=== PATIENT | male | born 1975 | race Caucasian/White ===

== ENCOUNTER 2021-09-30 14:26 | Outpatient (CLI) | payer OTHER, SELFPAY ==
[2021-09-30 17:26] LABS: Chloride* 100 mmol/L (96-114); Potassium* 3.9 mmol/L (3.6-5.1); Sodium* 136 mmol/L (135-149)
[2021-09-30 17:27] LABS: Blood Urea Nitrogen* 13 mg/dL (5-24); Calcium* 9.5 mg/dL (8.4-10.6); Carbon Dioxide* 25 mmol/L (20-32); Creatinine* 0.8 mg/dL (0.5-1.5); Estimated Glomerular Filt Rate 111.92; Glucose* 92 mg/dL (60-115)
== END 2021-09-30 14:27 | disposition home or self-care (01) ==
LOC: NFLDREF 14:27
PROVIDERS: PCP Family Medicine; Visit Provider Family Medicine
DX: I10 Essential (primary) hypertension (principal)
CPT/HCPCS: 80048

== ENCOUNTER 2022-11-10 08:30 | Outpatient (CLI) | payer OTHER, SELFPAY | END 2022-11-10 08:31 | disposition home or self-care (01) | LOC: NFLDREF 11-13 20:22 | PROVIDERS: PCP Family Medicine; Referring Provider Family Medicine; Visit Provider Family Medicine | DX: Z00.00 Encounter for general adult medical examination without abnormal findings (principal); E78.5 Hyperlipidemia, unspecified; I10 Essential (primary) hypertension | CPT/HCPCS: 80053; 80061 ==

== ENCOUNTER 2024-06-14 15:03 | Outpatient (CLI) | payer BC, SELFPAY | END 2024-06-14 15:04 | disposition home or self-care (01) | PROVIDERS: PCP Family Medicine; Referring Provider Family Medicine; Visit Provider Family Medicine | DX: E78.5 Hyperlipidemia, unspecified (principal) | CPT/HCPCS: 80053; 80061 ==

== ENCOUNTER 2024-07-13 08:50 | Outpatient (CLI) | payer BC, SELFPAY ==
--- NOTE | 2024-07-13 10:17 | P.ANES_ITS ---
Anesthesia Charges Start Date/Time Anesthesia Start Date: 07/13/24 Anesthesia Start Time: 09:33 Stop Date/Time Anesthesia Stop Date: 07/13/24 Anesthesia Stop Time: 10:15 Coding CPT Codes CPT Codes: ANES UPR LWR GI NDSC PX - 34772 ([id number]) P2 - PATIENT W/MILD SYST DISEASE, QK - LINUX NETWORK ENGINEER 2-4 CNCRNT ANES PROC, QX - GLACING MACHINE TENDER SVC W/ MD MED DIRECTION
--- NOTE | 2024-07-13 10:17 | W.ANESCHARGE ---
Anesthesia Charges Start Date/Time Anesthesia Start Date: 07/13/24 Anesthesia Start Time: 09:33 Stop Date/Time Anesthesia Stop Date: 07/13/24 Anesthesia Stop Time: 10:15 Coding CPT Codes CPT Codes: ANES UPR LWR GI NDSC PX - 16221 ([id number]) P2 - PATIENT W/MILD SYST DISEASE, QK - WORLD LANGUAGE TEACHER 2-4 CNCRNT ANES PROC, QX - NURSING HOME AIDE SVC W/ MD MED DIRECTION
--- NOTE | 2024-07-13 12:08 | P.ANES_ITS ---
Anesthesia Charges Start Date/Time Anesthesia Start Date: 07/13/24 Anesthesia Start Time: 09:33 Stop Date/Time Anesthesia Stop Date: 07/13/24 Anesthesia Stop Time: 10:15 Coding CPT Codes CPT Codes: ANES UPR LWR GI NDSC PX - 61113 ([id number]) QK - LADIES ATTENDANT 2-4 CNCRNT ANES PROC, QX - SCAFFOLD ERECTOR SVC W/ MD MED DIRECTION, P2 - PATIENT W/MILD SYST DISEASE
--- NOTE | 2024-07-13 12:08 | W.ANESCHARGE ---
Anesthesia Charges Start Date/Time Anesthesia Start Date: 07/13/24 Anesthesia Start Time: 09:33 Stop Date/Time Anesthesia Stop Date: 07/13/24 Anesthesia Stop Time: 10:15 Coding CPT Codes CPT Codes: ANES UPR LWR GI NDSC PX - 72510 ([id number]) QK - BUFFING AND SUEDING MACHINE OPERATOR 2-4 CNCRNT ANES PROC, QX - NURSE SANE SVC W/ MD MED DIRECTION, P2 - PATIENT W/MILD SYST DISEASE
== END 2024-07-13 08:51 | disposition home or self-care (01) ==
LOC: OP CLINIC 08:51
PROVIDERS: PCP Family Medicine; Visit Provider Surgery
DX: Z12.11 Encounter for screening for malignant neoplasm of colon (principal); Z83.719 Family history of colon polyps, unspecified; R10.13 Epigastric pain; R10.11 Right upper quadrant pain; G89.29 Other chronic pain; D12.3 Benign neoplasm of transverse colon; D12.7 Benign neoplasm of rectosigmoid junction; K64.8 Other hemorrhoids; K57.30 Diverticulosis of large intestine without perforation or abscess without bleeding
CPT/HCPCS: 00813; 43239; 45380; 45385; 88305; J2704; J3490